=== PATIENT | male | born 1990 | race Caucasian/White ===

== ENCOUNTER 2016-12-10 10:39 | Emergency (ER) | payer BC, OTHER ==
[2016-12-10 11:11] VITALS: BP 135/76
--- NOTE | 2016-12-10 12:51 | UC ---
Respiratory Complaint HPI - HPI Summary HPI Summary: patient has had 1-2 weeks of sinus pressure now it has moved into his chest, cough and tightness. no fever - History of Current Complaint Chief Complaint: UCGeneralIllness Stated Complaint: SORE THROAT,CONGESTION,EAR PAIN Time Seen by Provider: 12/10/16 12:36 Hx Obtained From: Patient Onset/Duration: Sudden Onset, Lasting Weeks Timing: Constant Severity Initially: Mild Severity Currently: Moderate Pain Intensity: 6 Pain Scale Used: 0-10 Numeric Character: Cough: Nonproductive Aggravating Factors: Deep Breaths, Recumbent Position Alleviating Factors: Nothing Associated Signs And Symptoms: Positive: Wheezing, Nasal Congestion, Sinus Discomfort - Risk Factors Pulmonary Embolism Risk Factors: Negative Cardiac Risk Factors: Negative Pseudomonas Risk Factors: Negative Tuberculosis Risk Factors: Negative - Allergies/Home Medications Allergies/Adverse Reactions: Allergies Allergy/AdvReac Type Severity Reaction Status Date / Time environmental Allergy Eyes Uncoded 12/10/16 11:11 Itchy/Swollen/Red/Watery Home Medications: Home Medications [id number] W/ APAP [Tylenol Cold & Flu Severe] 1 tab PO DAILY 12/10/16 [History Confirmed 12/10/16] PMH/Surg Hx/FS Hx/Imm Hx Previously Healthy: Yes - Surgical History Surgical History: Yes Surgery Procedure, Year, and Place: wisdom teeth; tonsils 1998 - Family History Known Family History: Negative: Cardiac Disease, Hypertension - Social History Alcohol Use: Occasionally Substance Use Type: None Smoking Status (MU): Never Smoked Tobacco - Immunization History Most Recent Influenza Vaccination: NOT YET THIS YEAR Review of Systems Constitutional: Fatigue Skin: Negative Eyes: Negative ENT: Sore Throat, Nasal Discharge Respiratory: Cough Cardiovascular: Negative Gastrointestinal: Negative Genitourinary: Negative Motor: Negative Neurovascular: Negative Musculoskeletal: Negative Neurological: Headache Psychological: Negative All Other Systems Reviewed And Are Negative: Yes Physical Exam Triage Information Reviewed: Yes Appearance: Well-Nourished, Ill-Appearing, Pain Distress Vital Signs: Initial Vital Signs Temp 98.6 F 12/10/16 11:07 Pulse 85 12/10/16 11:07 Resp 16 12/10/16 11:07 BP 135/76 12/10/16 11:07 Pulse Ox 100 12/10/16 11:07 Vital Signs Reviewed: Yes Eye Exam: Normal Eyes: Positive: Conjunctiva Inflamed ENT: Positive: Pharyngeal erythema, Nasal congestion, Nasal drainage, TMs normal Dental Exam: Normal Neck exam: Normal Neck: Positive: Supple, Nontender, No Lymphadenopathy Respiratory Exam: Normal Respiratory: Positive: Chest non-tender, No respiratory distress, No accessory muscle use, Wheezing, Inspiration Cardiovascular Exam: Normal Cardiovascular: Positive: RRR, No Murmur, Pulses Normal Abdominal Exam: Normal Abdomen Description: Positive: Nontender, No Organomegaly, Soft Bowel Sounds: Positive: Present Musculoskeletal Exam: Normal Musculoskeletal: Positive: Strength Intact, ROM Intact, No Edema Neurological Exam: Normal Neurological: Positive: Alert, Muscle Tone Normal Psychological Exam: Normal Skin Exam: Normal UC Diagnostic Evaluation - Laboratory O2 Sat by Pulse Oximetry: 100 Respiratory Course/Dx - Course Course Of Treatment: History obtained, medication usage reviewed, exam performed , educated on manual sinus drainage. medication prescribed. - Differential Dx/Diagnosis Differential Diagnosis/HQI/PQRI: Asthma, Bronchitis, CHF, Influenza, Laryngitis , Sinusitis Provider Diagnoses: sinus congestion. bronchitis Discharge - Discharge Plan Condition: Stable Disposition: HOME Patient Education Materials: Acute Bronchitis (ED) Additional Instructions: Take the prednisone as prescribed. Increase your fluid intake and continue with advil or tylneol as neede for pain and fever. manual sinus drainage, by massageing the sinuses and use of neti pot are effective in treating the sinus congestion. follow up as needed for any worsening symptoms.
== END 2016-12-10 13:06 | disposition home or self-care (01) ==
LOC: UCCORT 10:39
DX: J40 Bronchitis, not specified as acute or chronic (principal)
CPT/HCPCS: 99212; G0463

== ENCOUNTER 2018-11-14 07:03 | Emergency (ER) | payer BC ==
[2018-11-14 07:23] VITALS: BP 130/84
--- NOTE | 2018-11-14 07:26 | UC ---
Respiratory Complaint HPI - HPI Summary HPI Summary: The patient is a 28-year-old male that has been ill for over 2 weeks. Nasal congestion and some postnasal drip, sore throat, cough, and chest tightness. At times he has been febrile. He denies any chest pain or shortness of breath. Denies any nausea vomiting or diarrhea. - History of Current Complaint Chief Complaint: UCEar Stated Complaint: CONGESTION SORE THROAT EAR Time Seen by Provider: 11/14/18 07:25 Onset/Duration: Gradual Onset, Lasting Weeks Timing: Constant Severity Initially: Mild Severity Currently: Moderate Pain Intensity: 3 Pain Scale Used: 0-10 Numeric Character: Cough: Productive Aggravating Factors: Nothing Alleviating Factors: Nothing Associated Signs And Symptoms: Positive: Fever, Chills, URI, Nasal Congestion, Sinus Discomfort - Allergies/Home Medications Allergies/Adverse Reactions: Allergies Allergy/AdvReac Type Severity Reaction Status Date / Time environmental Allergy Eyes Uncoded 11/14/18 07:22 Itchy/Swollen/Red/Watery Home Medications: Home Medications Omeprazole CAP* [Prilosec CAP* 20 MG] 20 mg PO DAILY 11/14/18 [History Confirmed 11/14/18] PMH/Surg Hx/FS Hx/Imm Hx Previously Healthy: Yes - Surgical History Surgical History: Yes Surgery Procedure, Year, and Place: wisdom teeth; tonsils 1998 - Family History Known Family History: Negative: Cardiac Disease, Hypertension, Respiratory Disease - Social History Alcohol Use: Occasionally Substance Use Type: None Smoking Status (MU): Never Smoked Tobacco - Immunization History Most Recent Influenza Vaccination: NOT YET THIS YEAR Review of Systems All Other Systems Reviewed And Are Negative: Yes Constitutional: Positive: Fever, Chills, Fatigue Skin: Positive: Negative Eyes: Positive: Negative ENT: Positive: Sore Throat, Ear Ache, Nasal Discharge, Sinus Congestion, Sinus Pain/Tenderness Respiratory: Positive: Cough Cardiovascular: Positive: Negative Gastrointestinal: Positive: Negative Genitourinary: Positive: Negative Motor: Positive: Negative Neurovascular: Positive: Negative Musculoskeletal: Positive: Negative Neurological: Positive: Negative Psychological: Positive: Negative Physical Exam Triage Information Reviewed: Yes Appearance: Well-Appearing, No Pain Distress, Well-Nourished Vital Signs: Initial Vital Signs Temp 98.3 F 11/14/18 07:12 Pulse 80 11/14/18 07:12 Resp 18 11/14/18 07:12 BP 130/84 11/14/18 07:12 Pulse Ox 99 11/14/18 07:12 Vital Signs Reviewed: Yes Eyes: Positive: Conjunctiva Clear ENT: Positive: Hearing grossly normal, Pharyngeal erythema, Nasal congestion, Nasal drainage, TM bulging, Sinus tenderness, Uvula midline. Negative: Tonsillar swelling, Tonsillar exudate, Trismus, Muffled voice, Hoarse voice, Dental tenderness Dental Exam: Normal Neck: Positive: Supple, Nontender, No Lymphadenopathy Respiratory: Positive: No respiratory distress, No accessory muscle use, Wheezing - with forced expiration Cardiovascular: Positive: RRR, No Murmur Musculoskeletal: Positive: ROM Intact, No Edema Neurological: Positive: Alert Psychological Exam: Normal Skin Exam: Normal UC Diagnostic Evaluation - Laboratory O2 Sat by Pulse Oximetry: 99 - normal/not hypoxic Respiratory Course/Dx - Differential Dx/Diagnosis Provider Diagnosis: Acute sinusitis, Acute bronchitis Discharge - Sign-Out/Discharge Documenting (check all that apply): Patient Departure All imaging exams completed and their final reports reviewed: No Studies - Discharge Plan Condition: Stable Disposition: HOME Prescriptions: Amoxicillin PO (*) [Amoxicillin 875 MG (*)] 875 mg PO BID #14 tab Fluticasone NASAL SPRAY 50MCG* [Flonase NASAL SPRAY 50MCG*] 2 spray BOTH NARES BID #1 btl Patient Education Materials: Sinusitis (ED), Acute Bronchitis (ED) Referrals: Tim Taveras MD [Primary Care Provider] - If Needed Additional Instructions: recheck next week if not better - Billing Disposition and Condition Condition: STABLE Disposition: Home
== END 2018-11-14 07:40 | disposition home or self-care (01) ==
LOC: UCCORT 07:03
DX: J01.90 Acute sinusitis, unspecified (principal); J20.9 Acute bronchitis, unspecified
CPT/HCPCS: 99212; G0463

== ENCOUNTER 2019-06-28 09:52 | Emergency (ER) | payer BC ==
[2019-06-28 10:29] VITALS: BP 145/80
--- NOTE | 2019-06-28 10:55 | UC ---
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 Now the right eye is red watering and this am crusted shut. Pt states his children recently had pink eye. Left eye is also watering. Pleasant 29 yo gentleman with R eye redness, watery eye. This am woke up with yellow discharge. Has been exposed to pink eye recently. No cough / cold / fever / sob / cp. Some blurrry vision from drainage. Some sinus pressure but not nasal discharge. No rash. - History of Current Complaint Chief Complaint: UCEye Stated Complaint: RT EYE COMPLAINT Time Seen by Provider: 06/28/19 10:54 Hx Obtained From: Patient Pain Intensity: 0 - Allergy/Home Medications Allergies/Adverse Reactions: Allergies Allergy/AdvReac Type Severity Reaction Status Date / Time pepper (genus Capsicum) Allergy Hives/Diff. Verified 06/28/19 10:30 Breathing/I tching environmental Allergy Eyes Uncoded 11/14/18 07:22 Itchy/Swollen/Red/Watery PMH/Surg Hx/FS Hx/Imm Hx Previously Healthy: Yes - Surgical History Surgical History: Yes Surgery Procedure, Year, and Place: wisdom teeth; tonsils 1998 - Family History Known Family History: Negative: Cardiac Disease, Hypertension, Respiratory Disease - Social History Alcohol Use: Occasionally Substance Use Type: None Smoking Status (MU): Never Smoked Tobacco - Immunization History Most Recent Influenza Vaccination: NOT YET THIS YEAR Review of Systems All Other Systems Reviewed And Are Negative: Yes Constitutional: Positive: Negative Skin: Positive: Negative Eyes: Positive: Other - see hpi ENT: Positive: Other - see hpi Respiratory: Positive: Negative Cardiovascular: Positive: Negative Gastrointestinal: Positive: Negative Genitourinary: Positive: Negative Motor: Positive: Negative Neurovascular: Positive: Negative Musculoskeletal: Positive: Negative Neurological: Positive: Negative Is Patient Immunocompromised?: No Physical Exam Triage Information Reviewed: Yes Appearance: Well-Appearing, Well-Nourished Vital Signs: Initial Vital Signs Temp 98 F 06/28/19 10:24 Pulse 69 06/28/19 10:24 Resp 16 06/28/19 10:24 BP 145/80 06/28/19 10:24 Pulse Ox 98 06/28/19 10:24 Vital Signs Reviewed: Yes Eye Exam: Other - R conj injected + drainage clear to yellow. L eye a little watey. perrla eomi Eyes: Positive: Conjunctiva Inflamed ENT: Positive: Pharynx normal, TM dull - R TM dull, dark suazo L TM good light reflex Neck exam: Normal Respiratory Exam: Normal - RR normal no dyspnea Cardiovascular Exam: Normal - HR normal nondiaphoretic Abdominal Exam: Normal - no c/ow Musculoskeletal Exam: Normal - gait steady, moves x 4 ext Neurological Exam: Normal - grossly nonfocal Psychological Exam: Normal - conversing easily and appropriately Skin Exam: Normal - no visible or reported rash Course/Dx - Course Course Of Treatment: reviewed coa / tx plan questions as posed answered to the best of my ability - Diagnoses Provider Diagnosis: Conjunctivitis Discharge - Sign-Out/Discharge Documenting (check all that apply): Patient Departure All imaging exams completed and their final reports reviewed: No Studies - Discharge Plan Condition: Stable Disposition: HOME Prescriptions: Moxifloxacin 0.5% OPHTH(NF) [Vigamox 0.5% OPHTH(NF)] 2 drop BOTH EYES TID 5 Days #1 bottle Patient Education Materials: Antihistamine (By mouth), Serous Otitis Media (ED) , Conjunctivitis (ED) Forms: *Work Release Referrals: Tim Taveras MD [Primary Care Provider] - - Billing Disposition and Condition Condition: STABLE Disposition: Home
== END 2019-06-28 11:23 | disposition home or self-care (01) ==
LOC: UCCORT 09:52
DX: H10.9 Unspecified conjunctivitis (principal)
CPT/HCPCS: 99212; G0463